=== PATIENT | female | born 1980 | race Two or more races ===

== ENCOUNTER 2017-04-15 17:37 | Emergency (ER) | payer OTHER ==
[~2017-04-15] VITALS: Ht 172.7 cm; Wt 84.3 kg
[~2017-04-15 17:37] MED LIST: LEVO25TA2 PO; MELO7.5T31 PO
[2017-04-15 18:19] LABS: HEMATOCRIT 37.4 % (34.6-47.8); HEMOGLOBIN 12.5 g/dL (11.7-16.4); WHITE BLOOD COUNT 8.9 x10^3/uL (3.4-10)
[2017-04-15 18:28] LABS: BLOOD UREA NITROGEN 13 mg/dL (7-18)
[2017-04-15] MEDS ORDERED: KETOROLAC 30 MG/1 ML IM ONE (18:30)
[2017-04-15] MEDS ORDERED: DIAZEPAM 5 MG TABLET PO ONE (18:30)
[2017-04-15] MEDS ORDERED: KETOROLAC 30 MG/1 ML ONE (18:31)
[2017-04-15] MEDS ORDERED: DIAZEPAM 5 MG TABLET ONE (18:31)
[2017-04-15 18:53] LABS: IS PT STATUS REG ER OR PRE ER? YES
[2017-04-15 20:13] VITALS: BP 97/57
== END 2017-04-15 20:15 | disposition home or self-care (01) ==
LOC: ED 20:09
DX: R07.89 Other chest pain (principal)
CPT/HCPCS: 36415; 71020; 80048; 82040; 84439; 84443; 84484; 85025; 93005; 96372; 99285; J1885

== ENCOUNTER → 2017-04-26 | Outpatient (CLI) | payer OTHER | END | disposition home or self-care (01) | LOC: CFH 14:58 | PROVIDERS: ATTEND Internal Medicine Endocrinology, Diabetes & Metabolism | DX: E03.9 Hypothyroidism, unspecified (principal) | CPT/HCPCS: 76536 ==